=== PATIENT | female | born 1980 | race African-American/Black ===

== ENCOUNTER 2021-05-11 20:37 | Emergency (ER) | payer MEDICAID ==
[~2021-05-11] VITALS: Ht 170.2 cm; Wt 78.0 kg
[~2021-05-11 20:37] MED LIST: ALBU18HF2 IH; GUAI-858 PO; OMEPRAZOLE; TOPI50TA PO
[2021-05-11] MEDS ORDERED: MAGNESIUM/ALUMINUM HYDROXIDE/SIMETHICONE 30ML UDC PO ONE (23:15)
[2021-05-11] MEDS ORDERED: ACETAMINOPHEN 325MG TABLET PO ONE (23:15)
[2021-05-12 00:05] VITALS: BP 140/90
== END 2021-05-12 00:09 | disposition home or self-care (01) ==
LOC: ER 20:37
DX: T51.0X1A Toxic effect of ethanol, accidental (unintentional), initial encounter (principal); Y92.89 Other specified places as the place of occurrence of the external cause; K21.9 Gastro-esophageal reflux disease without esophagitis; G43.909 Migraine, unspecified, not intractable, without status migrainosus; Z79.899 Other long term (current) drug therapy
CPT/HCPCS: 99283